=== PATIENT | female | born 2000 | race Caucasian/White ===

== ENCOUNTER 2023-11-17 12:14 | Inpatient (IN) | payer OTHER, SELFPAY ==
[2023-11-17 13:15] LABS: HEMATOCRIT 41.4 % (36.0-47.0); HEMOGLOBIN 13.5 g/dl (12.0-15.5); MEAN CORPUSCULAR HEMOGLOBIN 27.6 pg (27.0-33.0); MEAN CORPUSCULAR HGB CONC 32.6 g/dl (32.0-36.5); MEAN CORPUSCULAR VOLUME 84.5 fl (80.0-96.0); PLATELET COUNT, AUTOMATED 323 10^3/uL (150-450); WHITE BLOOD COUNT 8.8 10^3/uL (4.0-10.0)
[2023-11-17 13:41] LABS: ETHYL ALCOHOL (ETHANOL) 0.004 % (0.000-0.010); HCG, SERUM QUALITATIVE NEGATIVE (NEGATIVE)
[2023-11-17 13:43] LABS: SALICYLATE LEVEL < 3.0 MG/DL (<30)
[2023-11-17 13:48] LABS: ALBUMIN 3.9 G/DL (3.2-5.2); ALKALINE PHOSPHATASE 117 U/L (46-116); ALT/SGPT 26 U/L (7.0-40); AST/SGOT 23 U/L (<34); BILIRUBIN,DIRECT 0.1 MG/DL (<0.4); BILIRUBIN,TOTAL 0.4 MG/DL (0.3-1.2); BLOOD UREA NITROGEN 10 MG/DL (9-23); CALCIUM LEVEL 9.8 MG/DL (8.5-10.1); CARBON DIOXIDE LEVEL 23 MMOL/L (20-31); CHLORIDE LEVEL 105 MMOL/L (98-107); CREATININE FOR GFR 0.64 MG/DL (0.55-1.30); GLOMERULAR FILTRATION RATE > 60.0 (>60); GLUCOSE, FASTING 93 MG/DL (60-100); POTASSIUM SERUM 4.2 MMOL/L (3.5-5.1); SODIUM LEVEL 138 MMOL/L (136-145); THYROID STIMULATING HORMONE 0.878 uIU/ML (0.55-4.78)
[2023-11-17 14:40] LABS: AMPHETAMINES LEVEL URINE NEGATIVE (NEGATIVE); BARBITURATES URINE NEGATIVE (NEGATIVE); BENZODIAZEPINES URINE NEGATIVE (NEGATIVE); CANNABINOIDS URINE NEGATIVE (NEGATIVE); COCAINE METABOLITE URINE NEGATIVE (NEGATIVE); METHADONE URINE NEGATIVE (NEGATIVE); OPIATES URINE NEGATIVE (NEGATIVE); PHENCYCLIDINE URINE NEGATIVE (NEGATIVE)
[2023-11-17] MEDS ORDERED: IRON65TA2 PO (16:06)
[2023-11-17] MEDS ORDERED: VITA100065 PO (16:06)
[2023-11-17] MEDS ORDERED: CRAN450T4 PO (16:06)
[2023-11-17] MEDS ORDERED: QUET400T2 PO (16:06)
[2023-11-17] MEDS ORDERED: VITAD400CA PO (16:06)
[2023-11-17] MEDS ORDERED: BACL10TA2 PO (16:06)
[2023-11-17] MEDS ORDERED: PANT40TA29 PO (16:06)
[2023-11-17] MEDS ORDERED: FLUO20CA22 PO (16:06)
[2023-11-17] MEDS ORDERED: HOME MED LIST COMPLETE! XX SCH (16:15)
[2023-11-17] MEDS ORDERED: MOM 30ML SUSPENSION UDC PO PRN (18:15)
[2023-11-17] MEDS ORDERED: MAALOX 30 ML SUSP *UDC PO PRN (18:15)
[2023-11-17] MEDS ORDERED: OLANZapine ORAL DISINTEGRATING TAB 5MG PO PRN (18:15)
[2023-11-17] MEDS ORDERED: traZODone 50 MG TAB PO PRN (18:15)
[2023-11-17] MEDS: ACETAMINOPHEN TAB 650MG DOSE (2X325MG) PO PRN (21:39)
[2023-11-17 21:55] VITALS: BP 144/71; TEMP 98.2; O2SAT 96
[2023-11-17] MEDS: diphenhydrAMINE 25MG CAP PO PRN (22:53)
[2023-11-17] MEDS: LORazepam 1 MG TAB PO PRN (23:33)
[2023-11-18 06:07] VITALS: BP 139/78; TEMP 97.4; O2SAT 99
[2023-11-18] MEDS: FLUoxetine 20MG CAP PO SCH (14:01)
[2023-11-18 15:30] VITALS: BP 160/82; TEMP 97.5; O2SAT 97
[2023-11-18 15:43] VITALS: BP 128/80
[2023-11-18] MEDS: QUEtiapine FUMARATE 100 MG TAB PO SCH (20:33)
[2023-11-18] MEDS: OLANZapine 5 MG TAB PO SCH (20:33)
[2023-11-19 06:16] VITALS: BP 147/80; TEMP 98.4; O2SAT 99
[2023-11-19 07:22] LABS: CHOLESTEROL RISK RATIO 2.81 (<5); HDL CHOLESTEROL 60.4 MG/DL (>40); NON-HDL-C 109.6 MG/DL
[2023-11-19 17:23] VITALS: BP 139/79; TEMP 97.1; O2SAT 99
[2023-11-19] MEDS: OLANZapine 10 MG TAB PO SCH (20:37)
[2023-11-20 06:26] VITALS: BP 110/65; TEMP 97.5; O2SAT 99
[2023-11-20 15:52] VITALS: BP 133/78; TEMP 98.2; O2SAT 99
[2023-11-20 20:30] VITALS: BP 136/76
[2023-11-20] MEDS: PRAZOSIN 1 MG CAP PO SCH (20:30)
[2023-11-21 06:14] VITALS: BP 107/59; TEMP 97.7; O2SAT 96
[2023-11-21 15:16] LABS: APPEARANCE, URINE CLEAR (CLEAR); BACTERIA, URINE AUTO NEGATIVE (NEGATIVE); BILIRUBIN, URINE AUTO NEGATIVE (NEGATIVE); BLOOD, URINE BLOOD NEGATIVE (NEGATIVE); COLOR, URINE YELLOW (YELLOW); GLUCOSE, URINE (UA) AUTO NEGATIVE (NEGATIVE); KETONE, URINE AUTO NEGATIVE (NEGATIVE); LEUKOCYTE ESTERASE, URINE AUTO NEGATIVE (NEGATIVE); MUCUS, URINE SMALL (NEGATIVE); NITRITE, URINE AUTO NEGATIVE (NEGATIVE); PROTEIN, URINE AUTO NEGATIVE (NEGATIVE); RBC, URINE AUTO 1 /HPF (0-3); SPECIFIC GRAVITY URINE AUTO 1.018 (1.002-1.035); SQUAMOUS EPITHELIAL CELL UR AU 1 /HPF (0-6); UROBILINOGEN, URINE AUTO 0.2 mg/dL (0.0-2.0); WBC, URINE AUTO 1 /HPF (0-3)
[2023-11-21 18:13] VITALS: BP 141/79; TEMP 97.7; O2SAT 99
[2023-11-22 06:43] VITALS: BP 126/77; TEMP 97.5; O2SAT 97
[2023-11-22 18:33] VITALS: BP 131/86; TEMP 98.4; O2SAT 97
[2023-11-22] MEDS: QUEtiapine FUMARATE 200 MG TAB PO SCH (20:04)
[2023-11-23 06:17] VITALS: BP 157/88; TEMP 97.1; O2SAT 98
[2023-11-23 18:41] VITALS: BP 126/84; TEMP 97.4
[2023-11-24 06:43] VITALS: BP 123/75; TEMP 97.4; O2SAT 98
[2023-11-24] MEDS: OLANZapine 10 MG TAB PO SCH (09:13)
[2023-11-24 18:54] VITALS: BP 142/85; TEMP 98.2
[2023-11-25 06:08] VITALS: BP 149/71; TEMP 97.1; O2SAT 100
[2023-11-25 17:54] VITALS: BP 141/84; TEMP 97.2; O2SAT 98
[2023-11-26 06:22] VITALS: BP 138/82; TEMP 97.1; O2SAT 100
[2023-11-26 16:08] VITALS: BP 131/64; TEMP 97.5; O2SAT 98
[2023-11-27 06:39] VITALS: BP 126/73; TEMP 98.3; O2SAT 99
[2023-11-27] MEDS: IBUPROFEN 400MG TAB PO PRN (10:47)
[2023-11-27 15:40] VITALS: BP 136/72; TEMP 98.2; O2SAT 100
[2023-11-28 06:26] VITALS: BP 166/95; TEMP 96.9; O2SAT 98
[2023-11-28 06:27] VITALS: BP 144/92
[2023-11-28 15:41] VITALS: BP 133/75; TEMP 98.2; O2SAT 98
[2023-11-29 06:44] VITALS: BP 128/58; TEMP 97.8; O2SAT 96
[2023-11-29] MEDS ORDERED: OLAN1TAB20 PO (08:33)
[2023-11-29] MEDS ORDERED: QUET200T2 PO (08:33)
== END 2023-11-29 13:49 | disposition home or self-care (01) | DRG 751 ==
LOC: M ED 12:14 → M ED INP 18:12 → M PSY 20:25
PROVIDERS: ADMIT Student in an Organized Health Care Education/Training Program; ATTEND Student in an Organized Health Care Education/Training Program
DX: F29 Unspecified psychosis not due to a substance or known physiological condition (principal); F20.9 Schizophrenia, unspecified; Z91.148 Patient's other noncompliance with medication regimen for other reason; Z79.899 Other long term (current) drug therapy; F12.90 Cannabis use, unspecified, uncomplicated